=== PATIENT | male | born 1950 | race Caucasian/White ===

== ENCOUNTER 2017-10-30 19:23 | Emergency (ER) | payer OTHER ==
--- NOTE | 2017-10-30 19:53 | EDPHY ---
H & P Smoking Status: Never smoked Time Seen by Provider: 10/30/17 19:45 HPI/ROS: CHIEF COMPLAINT: Right hand laceration HISTORY OF PRESENT ILLNESS: Parkinson's, fell while holding a ceramic dinner plate which shattered into many pieces lacerating his right hand on the palmar side of the hypothenar eminence. Denies foreign body sensation or weakness or numbness distally. REVIEW OF SYSTEMS: No other injuries PAST MEDICAL HISTORY: Parkinson's, tetanus up-to-date. Social history: Here with family. General Appearance: Alert and conversant, cooperative. Normal range of motion of right elbow and wrist. Normal range of motion of right fingers and thumb. Normal distal 2 point discrimination capillary refill. Normal extensor tendon and FDP and FDS function in all fingers. Palmar laceration on the hypothenar eminence in a T-shaped fashion. No bony tenderness in the wrist or hand. Emergency Department course/MDM: Plan for anesthetic, irrigation, laceration closure. X-ray to evaluate for foreign body. For wound care and laceration repair please see DARBY Mario note. (Darrel Sterling) Constitutional: Initial Vital Signs Temperature (C) 36.7 C 10/30/17 19:27 Heart Rate 73 10/30/17 19:27 Respiratory Rate 18 10/30/17 19:27 Blood Pressure 143/95 H 10/30/17 19:27 O2 Sat (%) 95 10/30/17 19:27 O2 Delivery Mode Room Air Allergies/Adverse Reactions: No Known Allergies Allergy (Unverified 10/30/17 19:26) Home Medications: Medication Instructions Recorded NK [No Known Home Meds] 09/26/17 MDM/Departure - [facility] Imaging: I viewed and interpreted images myself - [facility] Imaging Results: Imaging Impressions Hand X-Ray 10/30/17 19:51 Impression: 1. There is no acute osseous abnormality. 2. Faint punctate opacities near the base of the thumb metacarpal, of uncertain significance (one-view finding). Procedures: Procedure: Laceration repair. Verbal consent was obtained from the patient. The 8 cm, complex, deep, arrow shaped laceration on the right palm was anesthetized in the usual fashion using 10 mL of 1% lidocaine. The wound was irrigated, draped and explored to its base with a gloved finger. There were no deep structures involved. No tendon injury was identified. The wound was repaired with #19, 4 0 Prolene. Clean sterile dressing applied. The procedure was performed by myself. Procedure: Splint placement. A right Velcro volar splint was applied by the Emergency Room vascular ultrasound technician. After application of the splint I returned and re-examined the patient. The splint was adequately immobilizing the joint and distal to the splint the patient's circulation and sensation was intact. (Dianne Yarbrough) - Depart Disposition: Home, Routine, Self-Care Clinical Impression: Laceration of right palm Qualifiers: Encounter type: initial encounter Qualified Code(s): S61.411A - Laceration without foreign body of right hand, initial encounter Condition: Good Instructions: Laceration (ED) Additional Instructions: Wound Care Follow-Up: Removal of sutures in 10-12 days. Suture removal is complimentary in uncomplicated cases. Infection or abnormal findings would require reevaluation by the MD. In that case, you may be billed. Referrals: DIONISIO RENNER [Other] - As per Instructions
[2017-10-30 21:29] VITALS: BP 157/102
== END 2017-10-30 21:25 | disposition home or self-care (01) ==
PROC: 0HQFXZZ Repair Right Hand Skin, External Approach (ICD-10-PCS; principal; 2017-10-30)
DX: S61.411A Laceration without foreign body of right hand, initial encounter (principal); G20 Parkinson's disease; W26.8XXA Contact with other sharp object(s), not elsewhere classified, initial encounter; Y92.9 Unspecified place or not applicable; Y93.9 Activity, unspecified; Y99.9 Unspecified external cause status
CPT/HCPCS: 12004; 73130; 99283; L3984

== ENCOUNTER 2018-05-01 09:49 | Emergency (ER) | payer OTHER ==
--- NOTE | 2018-05-01 09:59 | EDPHY ---
H & P Stated Complaint: fall on 04/26 R hip pain, hx of parkinson's Time Seen by Provider: 05/01/18 09:59 HPI/ROS: CHIEF COMPLAINT: Mechanical fall, pelvic pain, flank hematoma HISTORY OF PRESENT ILLNESS: The patient presents to the ED for evaluation of a flank hematoma and increasing pelvic pain over the past several days. The patient slipped and fell on April 26. He is not anticoagulated but does have a history of Parkinson's disease. The patient did developed fairly significant bruise to his flank and right posterior iliac crest. The patient denies any acute lower extremity numbness or weakness. The patient did not strike his head. He has no complaints of headache, neck pain, chest pain, difficulty breathing or extremity complaints. He has been ambulatory. REVIEW OF SYSTEMS: A comprehensive 10 point review of systems is otherwise negative aside from elements mentioned in the history of present illness. Source: Patient Exam Limitations: No limitations - Personal History Current Tetanus/Diphtheria Vaccine: Yes Current Tetanus Diphtheria and Acellular Pertussis (TDAP): Yes - Medical/Surgical History Hx Asthma: No Hx Chronic Respiratory Disease: No Hx Diabetes: No Hx Cardiac Disease: No Hx Renal Disease: No Hx Cirrhosis: No Hx Alcoholism: No Hx HIV/AIDS: No Hx Splenectomy or Spleen Trauma: No Other PMH: 2 ELECTRODES IN BRAIN, PARKINSONS, SHATTERED NOSE - Social History Smoking Status: Never smoked - Physical Exam Exam: General Appearance: Alert, no distress Head: Atraumatic Eyes: Pupils equal, round, reactive ENT, Mouth: No hemotympanum, no oral trauma Neck: Nontender, trachea midline Respiratory: No chest wall tender, no subcutaneous air, lungs clear bilaterally Cardiovascular: Regular rate and rhythm Abdomen: Abdomen is soft and nontender, pelvis stable Skin: Ecchymosis noted to the right flank, tenderness to palpation over the right posterior iliac crest Back: No midline T/L/S pain Extremities: Nontender, full range of motion Neurological: A&Ox3, normal motor function, normal sensory exam Constitutional: Initial Vital Signs Temperature (C) 36.6 C 05/01/18 09:53 Heart Rate 68 05/01/18 09:53 Respiratory Rate 16 05/01/18 09:53 O2 Sat (%) 98 05/01/18 09:53 O2 Delivery Mode Room Air Allergies/Adverse Reactions: No Known Allergies Allergy (Unverified 09/19/18 19:26) Home Medications: Medication Instructions Recorded NK [No Known Home Meds] 09/26/17 Medical Decision Making ED Course/Re-evaluation: ED course: Patient presents to the ED with a flank hematoma in the setting of a recent fall. Given his tenderness in age a CT scan of the abdomen pelvis was ordered to evaluate his retroperitoneal structures and bones. Fortunately the results of this study demonstrate no evidence of an intra-abdominal injury, retroperitoneal injury or obvious pelvic fracture. The patient is hemodynamically stable. The patient will be treated for a soft tissue contusion. He is given a prescription for lidocaine patch. He is advised to use Tylenol and ibuprofen. Patient is advised to return to the emergency department for markedly worsening symptoms or other concerns. In terms of the rest of the patient's traumatic survey there is no evidence of an additional injury noted on exam. The patient is neurologically intact. Differential Diagnosis: Differential diagnosis considered includes pelvic fracture, retroperitoneal hemorrhage, intra-abdominal hemorrhage - Data Points Laboratory Results: 05/01/18 10:15 POC Hgb 15.3 gm/dL gm/dL (13.7-17.5) POC Hct 45 % % (40-51) POC Sodium 143 mEq/L mEq/L (135-145) POC Potassium 4.6 mEq/L mEq/L (3.3-5.0) POC Chloride 103 mEq/L mEq/L (97-110) POC Total CO2 24 mEq/L mEq/L (22-31) POC BUN 15 mg/dL mg/dL (7-23) POC Creatinine 1.0 mg/dL mg/dL (0.7-1.3) POC Glucose 101 mg/dL H mg/dL (70-100) Point of Care Test Results: Chemistry 05/01/18 10:15 POC Sodium 143 mEq/L mEq/L (135-145) POC Potassium 4.6 mEq/L mEq/L (3.3-5.0) POC Chloride 103 mEq/L mEq/L (97-110) POC Total CO2 24 mEq/L mEq/L (22-31) POC BUN 15 mg/dL mg/dL (7-23) POC Creatinine 1.0 mg/dL mg/dL (0.7-1.3) POC Glucose 101 mg/dL H mg/dL (70-100) ISTAT H&H 05/01/18 10:15 POC Hgb 15.3 gm/dL gm/dL (13.7-17.5) POC Hct 45 % % (40-51) Departure - Departure Disposition: Home, Routine, Self-Care Clinical Impression: Contusion, flank Condition: Good Instructions: Contusion in Adults (ED) Additional Instructions: 1. Your CT scan demonstrates no evidence of a fracture or intra abdominal bleeding. 2. Tylenol and ibuprofen as needed for pain. 3. Ice frequently. 4. Lidocaine patches can be applied for additional pain relief. 5. Return to the ED for markedly worsening symptoms or other concerns. Referrals: SHRUTI RENNER [Other] - As per Instructions
[2018-05-01] MEDS ORDERED: IOPAMIDOL (ISOVUE-300) 100 ML BTL ONE (10:38)
[2018-05-01] MEDS ORDERED: IBUPROFEN 600 MG TAB PO ONE ×2 (11:37→11:38)
[2018-05-01 11:50] VITALS: BP 146/74
== END 2018-05-01 11:50 | disposition home or self-care (01) ==
DX: S30.1XXA Contusion of abdominal wall, initial encounter (principal); G20 Parkinson's disease; W01.0XXA Fall on same level from slipping, tripping and stumbling without subsequent striking against object, initial encounter; Y99.9 Unspecified external cause status
CPT/HCPCS: 74177; 99285; Q9967; 82435-PO; 82565-PO; 82947-PO; 84132-PO; 84295-PO; 84520-PO; 85014-ER